=== PATIENT | male | born 1950 | race Caucasian/White ===

== ENCOUNTER 2020-05-09 07:56 | Emergency (ER) | payer MEDICARE, BC ==
[~2020-05-09 07:56] MED LIST: ATROPINE SULFATE 0.1 MG/ML 10ML SYRINGE ONE; EPINEPHrine 10 ML SYRINGE (0.1 MG/ML) ONE; SODIUM BICARB 8.4% 50 ML SYR (1 MEQ/ML) ONE
--- NOTE | 2020-05-09 08:17 | ED ---
General Adult HPI - General Stated complaint: cardiac arrest Time Seen by Provider: 05/09/20 07:56 Source: patient, RN notes reviewed, old records reviewed - History of Present Illness Initial comments: This is a 69-year-old male who presents to the emergency department via EMS from an assisted care facility. Patient was found unresponsive. When EMS arrived the patient had very shallow breathing and a very weak pulse. Once EMS got her into the emesis they lost pulses and started CPR. Patient also went into V. fib and was shocked 3 times. Patient was in PE a day for most of the right eye the patient received 5 epinephrines prior to arrival and by the time the patient arrived the patient was pulseless for a half an hour. Upon arrival patient was pulseless and apneic here. Patient has a past medical history significant for schizophrenia COPD and CHF. No further history is available this time Review of Systems ROS Statement: Those systems with pertinent positive or pertinent negative responses have been documented in the HPI. ROS Other: All systems not noted in ROS Statement are negative. General Exam - General Exam Comments Initial Comments: GENERAL: Patient was unresponsive. Patient had vomit all over his face and neck. ENT: No gross abnormalities noted EYES: Pupils were fixed PULMONARY: Patient is being bagged with a Jelani tube in place there are no spontaneous breath sounds CARDIOVASCULAR: Patient has no pulse and no heart sounds ABDOMEN: No gross abnormalities. GENITALIA: Patient scrotum appeared very large consistent with possible hernia SKIN: Skin is clear with no lesions or rashes and otherwise unremarkable. NEUROLOGIC: Patient is a GCS of 3 MUSCULOSKELETAL: Patient is moving any extremities. PSYCHIATRIC: Unable to assess Disposition Clinical Impression: Cardiopulmonary arrest Disposition: Referrals: Minesh Diaz MD [Primary Care Provider] - 1-2 days Time of Disposition: 08:30 Preliminary Cause of : Cardiopulmonary arrest
[2020-05-09 08:22] VITALS: PULSE 0; RESP 0
== END 2020-05-09 11:45 | disposition expired ==
LOC: EC 07:56
DX: I46.9 Cardiac arrest, cause unspecified (principal)
CPT/HCPCS: 92950; 99285